=== PATIENT | female | born 1955 | race Caucasian/White ===

== ENCOUNTER 2017-03-22 22:45 | Emergency (ER) | payer MEDICARE ==
[2017-03-22 22:51] VITALS: BP 143/91
[2017-03-22] MEDS ORDERED: Famotidine TAB* 20 MG PO ONE (22:56)
[2017-03-22] MEDS ORDERED: predniSONE TAB* 20 MG PO ONE (22:56)
--- NOTE | 2017-03-23 00:01 | ED ---
Allergic Reaction/Systemic - HPI Summary HPI Summary: 61F presents with reaction to bee sting. She was walking into house when she felt a sting on her right forearm. the area became itchy and started to swell and the redness spread up her arm. She denies any chest pain, SOB, n/v, difficulty swallowing. She has had a similar reaction in past so she took 50mg Benadryl before arrived. - History of Current Complaint Chief Complaint: EDAllergicReaction Time Seen by Provider: 03/22/17 22:57 Pain Intensity: 2 - Allergies/Home Medications Allergies/Adverse Reactions: Allergies Allergy/AdvReac Type Severity Reaction Status Date / Time Sulfa Drugs Allergy Unknown Swelling Verified 07/11/15 14:25 Of Face,Lips,& Throat Adhesive Tape Allergy Blisters Verified 07/11/15 14:25 PMH/Surg Hx/FS Hx/Imm Hx Endocrine/Hematology History: Reports: Hx Anemia - needs to take iron befor surgery Denies: Hx Diabetes Cardiovascular History: Reports: Hx Hypertension Denies: Hx Congestive Heart Failure Respiratory History: Denies: Hx Chronic Obstructive Pulmonary Disease (COPD) History: Denies: Hx Dialysis, Hx Renal Disease Musculoskeletal History: Reports: Hx Arthritis Sensory History: Reports: Hx Contacts or Glasses Opthamlomology History: Reports: Hx Contacts or Glasses Neurological History: Reports: Hx Migraine Denies: Hx Dementia, Hx Seizures - Cancer History Hx Chemotherapy: No Hx Radiation Therapy: No - Surgical History Surgery Procedure, Year, and Place: left total knee- [facility]. gall bladder- [facility]. appendix - [facility]. hysterectomy Hx Anesthesia Reactions: Yes - sevewre nausea and vomiting Infectious Disease History: No Infectious Disease History: Reports: Hx Shingles Denies: Traveled Outside the [place] in Last 30 Days - Family History Known Family History: Positive: Cardiac Disease - Social History Alcohol Use: Rare Substance Use Type: Reports: None Smoking Status (MU): Former Smoker Have You Smoked in the Last Year: No Review of Systems Negative: Fever Negative: Chest Pain Negative: Shortness Of Breath Positive: Rash All Other Systems Reviewed And Are Negative: Yes Physical Exam Triage Information Reviewed: Yes Vital Signs On Initial Exam: Initial Vitals Temp Pulse Resp BP Pulse Ox 98.6 F 100 17 143/91 97 03/22/17 22:45 03/22/17 22:45 03/22/17 22:45 03/22/17 22:45 03/22/17 22:45 Completion Of Physical Exam Limited Due To: Dementia Appearance: Positive: Well-Appearing Skin: Positive: Warm, Dry, Other - redness and edema on anterior aspect of right forearm Head/Face: Positive: Normal Head/Face Inspection Eyes: Positive: Normal, EOMI, ZORA, Conjunctiva Clear ENT: Positive: Normal ENT inspection, Pharynx normal, TMs normal Respiratory/Lung Sounds: Positive: Clear to Auscultation, Breath Sounds Present Cardiovascular: Positive: Normal, RRR Musculoskeletal: Positive: Strength/ROM Intact - right arm, Other - good pulses Diagnostics - Vital Signs Vital Signs Temp Pulse Resp BP Pulse Ox 03/22/17 22:45 98.6 F 100 17 143/91 97 - Laboratory Lab Statement: Any lab studies that have been ordered have been reviewed, and results considered in the medical decision making process. Allergic Reaction Course/Dx - Course Course Of Treatment: 61F presents with reaction to bee sting. She was walking into house when she felt a sting on her right forearm. the area became itchy and started to swell and the redness spread up her arm. She denies any chest pain, SOB, n/v, difficulty swallowing. She has had a similar reaction in past so she took 50mg Benadryl before arrived. gave prednisone. no anaphlaytic reaction will in ED. will have continue steriod. patient understands and agrees with plan. - Diagnoses Differential Diagnosis/HQI/PQRI: Positive: Anaphylaxis, Local Allergic Reaction , Urticaria Provider Diagnoses: Bee sting Discharge - Discharge Plan Condition: Good Disposition: HOME Prescriptions: predniSONE TAB* [Deltasone TAB*] 40 mg PO DAILY #8 tab Patient Education Materials: Urticaria (ED) Referrals: Andrae Burch MD [Primary Care Provider] - Additional Instructions: Take Benadryl every 6 hours for 24 hours Take steroid once a day for [address] calamine lotion on area Return to ED if shortness of breath, chest pain, or if develop any new or worsening symptoms
== END 2017-03-23 00:08 | disposition home or self-care (01) ==
LOC: ED 22:45
DX: T63.441A Toxic effect of venom of bees, accidental (unintentional), initial encounter (principal); R21 Rash and other nonspecific skin eruption; Z87.891 Personal history of nicotine dependence; Y92.9 Unspecified place or not applicable
CPT/HCPCS: 99282; A9270-GY; J7512

== ENCOUNTER 2023-12-05 13:22 | Observation (INO) ==
[2023-12-05 13:50] LABS: Hematocrit 38.1 % (35-45); Hemoglobin 12.7 g/dL (11.5-14.3); Mean Corpuscular Hemoglobin 28.9 pg (27-33); Mean Corpuscular Hgb Conc 33.2 g/dL (31-36); Mean Corpuscular Volume 86.9 fL (80-97); Red Blood Count 4.39 10^6/uL (3.63-4.92); Red Cell Distribution Width 14.4 % (12-17); White Blood Count 6.8 10^3/uL (3.8-11.8)
[2023-12-05 13:56] LABS: INR 1.08 (0.83-1.13)
[2023-12-05 14:18] LABS: ABS Eosinophils 0.1 10^3/uL (0.0-0.5); ABS Lymphocytes 1.9 10^3/uL (1.0-4.8); ABS Monocytes 1.2 10^3/uL (0.0-0.9); ABS Neutrophils 3.6 10^3/uL (1.5-7.6); ABS Nucleated RBC 0.01 10^3/ul; Eosinophil % 1.6 %; Lymphocyte % 27.1 %; Mean Platelet Volume 11.2 fL (7.5-11.2); Nucleated Red Blood Cells % 0.1 %/100WBC (0.0-0.8); Platelet Count 100 10^3/uL (150-450)
[2023-12-05 15:12] LABS: High Sensitivity Troponin 1 Hr 3 pg/mL (<15)
[2023-12-05 16:00] LABS: Albumin 4.1 g/dL (3.2-5.2); Albumin/Globulin Ratio 1.8 (1-3); Calcium 9.5 mg/dL (8.6-10.3); Creatinine, Serum 0.7 mg/dL (0.51-0.95); Globulin 2.3 g/dL (2-4); Potassium 3.8 mmol/L (3.5-5.0); Total Bilirubin 0.5 mg/dL (0.2-1.0); Total Protein 6.4 g/dL (6.4-8.9); eGFR CKD-EPI 93.6 (>60)
[2023-12-05 18:35] LABS: HDL Cholesterol 43.7 mg/dL
[2023-12-05] MEDS: Enoxaparin 40 MG/0.4 ML SYR SUBCUT SCH (19:15)
[2023-12-06 05:47] LABS: Hematocrit 37.3 % (35-45); Hemoglobin 12.5 g/dL (11.5-14.3); Mean Corpuscular Hemoglobin 29.1 pg (27-33); Mean Corpuscular Hgb Conc 33.5 g/dL (31-36); Mean Corpuscular Volume 86.9 fL (80-97); Red Blood Count 4.29 10^6/uL (3.63-4.92); Red Cell Distribution Width 14.4 % (12-17); White Blood Count 6.1 10^3/uL (3.8-11.8)
[2023-12-06 05:54] LABS: Calcium 9.1 mg/dL (8.6-10.3); Creatinine, Serum 0.8 mg/dL (0.51-0.95); Magnesium 1.9 mg/dL (1.9-2.7); Potassium 3.7 mmol/L (3.5-5.0); eGFR CKD-EPI 79.7 (>60)
[2023-12-06 08:42] LABS: ABS Eosinophils 0.2 10^3/uL (0.0-0.5); ABS Lymphocytes 1.9 10^3/uL (1.0-4.8); ABS Monocytes 0.9 10^3/uL (0.0-0.9); ABS Neutrophils 3.2 10^3/uL (1.5-7.6); ABS Nucleated RBC 0.01 10^3/ul; Eosinophil % 2.6 %; Lymphocyte % 31.4 %; Mean Platelet Volume 11.4 fL (7.5-11.2); Nucleated Red Blood Cells % 0.2 %/100WBC (0.0-0.8); Platelet Count 84 10^3/uL (150-450)
[2023-12-06] MEDS: Aspirin EC 81 mg TAB.EC (enteric coated) PO SCH (11:46)
[2023-12-06] MEDS: Potassium Chlor 10 meq TAB PO SCH (11:47)
[2023-12-06] MEDS ORDERED: Regadenoson 0.4 MG/5 ML SYRINGE ONE (12:05)
[2023-12-06] MEDS ORDERED: Aminophylline 25 MG/ML VIAL ONE (12:05)
[2023-12-06 14:10] VITALS: BP 114/57
== END 2023-12-06 15:40 | disposition home or self-care (01) ==
LOC: EDHOLD 13:22 → ED 13:22 → MED 19:26 → MEDTELE 20:03
PROVIDERS: ADMIT Student in an Organized Health Care Education/Training Program; ATTEND Student in an Organized Health Care Education/Training Program